=== PATIENT | female | born 1975 | race Caucasian/White ===

== ENCOUNTER 2019-10-24 07:26 | Outpatient (CLI) | payer BC, SELFPAY ==
--- NOTE | 2019-10-29 21:36 | WPDPFTINT ---
PFT Interpretation PFT Interpretation: DOS: 10/24/2019 REQUESTING: Sylvia Ferrer NP REASON FOR TESTING: COPD PULMONARY FUNCTION TESTS Results are reliable and reproducible. Spirometry: FEV1 is 96%, 2.42 L. FVC is 103%, both are normal. FEV1% is 73%, normal. There is no significant change with bronchodilator. Lung volumes: TLC 120%, mild hyperinflation. RV is 145%, moderate air trapping. Airway resistance increased. Diffusion: DLCO 70%, mildly decreased. Flow volume loop: mild scooping of the expiratory limb. IMPRESSION: Normal spirometry, mild hyperinflation and moderate air trapping which confirms an obstructive process and mild diffusion impairment. This pattern may be seen in obstructive lung disease. Lack of response to bronchodilator should not preclude use if clinically indicated. Larissa Silva MD
--- NOTE | 2019-10-29 21:57 | WPDSIXMINUTE ---
Six Minute Walk DOS: 10/24/2019 REQUESTING: Sylvia Ferrer NP REASON FOR TESTING: COPD SIX MINUTE WALK This test was conducted per ATS guidelines. The initial saturation was 98% and pulse 91. She walked for 6 minutes without stopping, completing 1400 feet/ 426 meters. Pulse increased to 125, and saturation remained 97-98%. IMPRESSION: No supplemental oxygen is indicated with exertion. distance walked is adequate for age.
== END 2019-10-24 07:27 | disposition home or self-care (01) ==
LOC: ANHPFT 07:29
PROVIDERS: Visit Provider Nurse Practitioner
DX: J44.9 Chronic obstructive pulmonary disease, unspecified (principal)
CPT/HCPCS: 94060; 94618; 94726; 94729

== ENCOUNTER 2019-11-07 06:35 | Outpatient (CLI) | payer BC, SELFPAY ==
[2019-11-07 08:38] LABS: Cortisol Baseline 4.17 ug/dL
== END 2019-11-07 06:36 | disposition home or self-care (01) ==
PROVIDERS: PCP Nurse Practitioner Family
DX: R94.7 Abnormal results of other endocrine function studies (principal)
CPT/HCPCS: 36415; 82533; 96372; J0834

== ENCOUNTER 2020-08-21 07:31 | Outpatient (CLI) | payer BC, SELFPAY ==
--- NOTE | ~2020-08-21 | NM_ITS ---
. EXAM: NM gastric emptying study DATE: 08/21/2020 14:17 INDICATION: Abdominal distention. TECHNIQUE: A gastric emptying study was performed using the methodology of Marlin JOVEL, et al. J Nucl Med 2007; 48:568-572. The patient was given a meal consisting of 2 scrambled eggs labeled with 1 mCi Tc-99m sulfur colloid, 2 slices of toast, two packages of jam, and approximately 120 mL of water. Si multaneous anterior and posterior 1-min images of the abdomen were obtained with the patient supine a t multiple time points over a total period of 4 hours. The geometric mean of anterior and posterior v iews was determined, and the percentage retention was calculated for each time point. COMPARISON: None. FINDINGS: Gastric retention of the radiotracer-labeled meal was 36%, 10%, and 3% at the 1-hour, 2-ho ur, and 4-hour time points, respectively. With this technique, apparent rapid gastric emptying is sug gested by <30% gastric retention at 1 hour. Delayed gastric emptying is defined by gastric retention of >90% at 1 hour, >60% retention at 2 hours, or >10% retention at 4 hours. IMPRESSION: 1. Normal gastric emptying. Reviewed, dictated and finalized at location A. IMPRESSION: 1. Normal gastric emptying.
== END 2020-08-21 07:32 | disposition home or self-care (01) ==
PROVIDERS: PCP Nurse Practitioner Family; Visit Provider Nurse Practitioner Family
DX: K59.00 Constipation, unspecified (principal); R14.0 Abdominal distension (gaseous); R10.9 Unspecified abdominal pain
CPT/HCPCS: 78264; A9541